=== PATIENT | male | born 1990 | race Caucasian/White ===

== ENCOUNTER 2025-02-17 08:36 | Emergency (ER) | payer OTHER, SELFPAY ==
[2025-02-17 08:54] VITALS: BP 155/100
--- NOTE | 2025-02-17 09:20 | ED.GENMED ---
History of Present Illness
General
Chief Complaint: Facial Problem
Source: patient
Exam Limitations: none
Time Seen by Provider: 02/17/25 09:03
History of Present Illness
History of Present Illness:
35yoM with no significant past medical history presenting for evaluation of left sided facial asymmetry. Patient started to experience pain in his left jaw about 4 days ago. Patient woke up yesterday with paresthesias to the left side of his face
as well as asymmetry. He states he is unable to completely close his eye and his left eye is burning. He thought he may have a dental infection so went to the dentist yesterday. He had dental x-rays and was told that his symptoms were unlikely to
be related to his teeth. X-rays reportedly showed some fluid in the sinus so he was started on amoxicillin. Patient is otherwise asymptomatic and denies any weakness/paresthesias extremities, speech disturbance, balance issues. He denies any
recent tick bites but is outside frequently and believes he has Lyme disease in the past.
Phy Exam
General Physical Exam
General Presentation: well appearing and no apparent distress
General age: appears stated age
General Skin: warm and dry
General Habitus: normal
General Mental: alert
ENT Exam
ENT Exam: TM's normal, normocephalic and other (L facial asymmetry noted. Unable to completely close L eye and unable to elevate L eyebrow.)
Eye Exam
Eye Exam: PERRL, EOMI and conjunctiva normal
Pulmonary Exam
Pulmonary Exam: no respiratory distress
Neurological Exam
Neurological Exam: alert and other (L facial asymmetry noted as above with involvement of upper face. PERRL. EOMs intact. 5/5 strength and sensation intact in all extremities. Speech fluent. )
[place] Coma Scale
Eye Opening: Spontaneous
Verbal Response: Oriented
Motor Response: Obeys Commands
GCS Total Score: 15
Skin Exam
Skin Exam: normal color and warm/dry
Psychiatric Exam
Psychiatric Exam: normal mood/affect
Course
Orders/Labs/Results
Orders:
Orders
02/17/25 09:20
Prednisone [Deltasone] 60 mg PO NOW STA
02/17/25 09:41
Complete Blood Count/With Diff Urgent
Comprehensive Metabolic Panel Urgent
Lyme Progressive Urgent
Abnormal Lab Results
02/17/25
09:41
Chloride 108 H mmol/L
(98-107)
Glucose 105 H mg/dl
(70-99)
02/17/25 09:41
02/17/25 09:41
Vital Signs
Initial and Last Documented VS:
Initial Vital Signs
Temp Pulse Resp BP Pulse Ox
98.0 F 67 16 155/100 99
02/17/25 08:54 02/17/25 08:54 02/17/25 08:54 02/17/25 08:54 02/17/25 08:54
Last Documented Vital Signs
Temp Pulse Resp BP Pulse Ox
98.0 F 65 16 141/89 99
02/17/25 08:54 02/17/25 11:09 02/17/25 11:09 02/17/25 11:09 02/17/25 11:09
MDM/Problems Addressed
Differential Diagnosis Includes:
35yoM here with L facial asymmetry x 1 day. Also c/o L jaw pain x 4 days. Seen by his dentist yesterday and given a prescription for amoxil. Otherwise asymptomatic. He is hypertensive with otherwise stable vitals. There is a L facial droop noted on
exam with inability to completely close L eye or elevate L eyebrow. No other deficits noted on neuro exam. Presentation consistent with Bennett's palsy. Doubt stroke as upper face is affected.
Labs obtained which are overall unremarkable. Lyme testing pending. He was started on a course of prednisone. Supportive care discussed including artificial tears and eye taping QHS. Advised f/u with PCP. Patient in agreement with plan and was
discharged in stable condition.
*Critical Care Note
Total Time (30-74mins, 75-104mins- exclusive of procedures): Not Applicable
ED Attending Note
-
Portions of this chart may have been created with voice recognition software.� Occasional wrong word or��sound alike� substitutions may have occurred due to the inherent limitations of voice recognition software.
Discharge Plan
Departure
Patient Disposition: Home (Routine Discharge)
Date of Disposition: 02/17/25
Time of Disposition: 10:28
Patient with high blood pressure during this ER visit?: Yes
Discharge Problem:
Bennett's palsy
Instructions: Bennett's Palsy (DC)
Prescriptions:
New
prednisone 20 mg tablet
60 mg PO DAILY 6 Days Qty: 18 0RF
Referrals:
Frankie Walker MD [Family Provider, Internal Medicine]
Activity Restrictions/Additional Instructions:
Take prednisone as prescribed. Use artificial tears during the day and tape eye shut at night.
Please follow-up with your family doctor. Return to the ER with any new or worsening symptoms.
Interventions
Interventions:
*Risk Screen - Suicide Last Done: 02/17/25 09:18
*General Assessment Last Done: 02/17/25 09:18
*Neglect/Abuse Screening Last Done: 02/17/25 09:18
*ED- Fall Risk Assessment Last Done: 02/17/25 09:18
*Nursing Disposition Last Done: 02/17/25 11:09
ED- Neurological Assessment Last Done: 02/17/25 09:46
ED-Skin Assessment Last Done: 02/17/25 09:46
Discharge Date and Time
Discharge Date/Time: 02/17/25 11:10
Print Language: YAKUT
[2025-02-17] MEDS: DELTASONE 60 MG PO (09:36)
[2025-02-17 09:49] LABS: % Basophils 1.3 % (0-2); % Eosinophils 3.6 % (0-6); % Lymphocytes 32.3 % (20.5-51.1); % Neutrophils 53.8 % (42.2-75.2); Absolute Basophils 0.1 10^3/uL (0-0.2); Absolute Eosinophils 0.2 10^3/uL (0-0.7); Absolute Lymphocytes 1.8 10^3/uL (1.2-3.4); Absolute Monocytes 0.5 10^3/uL (0.1-0.6); Hemoglobin 16.1 g/dL (13.0-18.0); Mean Corpuscular Hgb 29.4 pg (27.0-31.0); Mean Corpuscular Volume 84.1 fL (80.0-94.0); Mean Platelet Volume 8.5 fL (7.4-10.4); Nucleated Red Blood Cells % 0 % (-); Platelet Count 285 10^3/uL (130-400); Red Blood Cell Count 5.47 10^6/uL (4.70-6.10); Red Cell Dist. Width 12.4 % (11.5-14.5); White Blood Cell Count 5.6 10^3/uL (4.8-10.8)
[2025-02-17 10:08] LABS: ALT (SGPT) 28 U/L (0-50); AST (SGOT) 24 U/L (17-59); Albumin 4.8 g/dl (3.5-5.0); Alkaline Phosphatase 57 U/L (38-126); Blood Urea Nitrogen 14 mg/dl (9-20); Calcium 9.5 mg/dl (8.4-10.2); Carbon Dioxide 27 mmol/L (22-30); Chloride 108 mmol/L (98-107); Glucose 105 mg/dl (70-99); Potassium 4.9 mmol/L (3.5-5.1); Sodium 141 mmol/L (135-145); Total Bilirubin 1.1 mg/dl (0.2-1.3); eGFR > 60.00
[2025-02-17 11:09] VITALS: BP 141/89
[2025-02-19 13:11] LABS: Lyme Antibody Screen, EIA Negative (Negative)
== END 2025-02-17 11:10 | disposition home or self-care (01) ==
LOC: EMR 08:36
PROVIDERS: Physician Assistant; EMERGENCY PHYSICIAN Student in an Organized Health Care Education/Training Program; FAMILY PHYSICIAN Internal Medicine
DX: G51.0 Bell's palsy (principal)
CPT/HCPCS: 99283; 80053; 85025; 86618